=== PATIENT | female | born 1980 | race Two or more races ===

== ENCOUNTER 2024-11-28 07:56 | Outpatient (CLI) | payer BC ==
[2024-11-28 09:00] LABS: Hematocrit 39.8 % (34.9-44.5); Hemoglobin 13.0 g/dL (12.0-15.5); Mean Corpuscular Hemoglobin 28.2 pg (27.0-33.0); Mean Corpuscular Volume 86.3 fL (81.6-98.3); Platelet Count 314 10x3/uL (150-450); Red Blood Cell (RBC) Count 4.61 10x6/uL (3.90-5.03); White Blood Cell (WBC) Count 7.76 10x3/uL (3.5-10.5)
[2024-11-28 09:18] LABS: ALT (SGPT) 55 U/L (Less than 34); AST (SGOT) 32 U/L (11-34); Albumin 3.9 g/dL (3.1-4.5); Alkaline Phosphatase 67 U/L (40-110); Anion Gap 13 mmol/L (10-20); BUN (Urea Nitrogen) 11 mg/dL (7.0-18.7); Bilirubin, Total 0.4 mg/dL (0.3-1.2); Calc. Creatinine Clearance 0 mL/min (70-130); Calcium 8.7 mg/dL (7.8-10.44); Carbon Dioxide 24 mmol/L (22-29); Chloride 108 mmol/L (98-107); Globulin 2.4 g/dL (2.4-3.5); Glucose 102 mg/dL (70-105); Potassium 4.4 mmol/L (3.5-5.1); Sodium 141 mmol/L (136-145)
== END 2024-11-28 07:57 | disposition home or self-care (01) ==
LOC: CSHLAB 07:56
PROVIDERS: ATTEND Surgery
DX: Z01.812 Encounter for preprocedural laboratory examination (principal); K80.20 Calculus of gallbladder without cholecystitis without obstruction
CPT/HCPCS: 80053; 85027

== ENCOUNTER 2024-11-30 07:52 | Day surgery (SDC) | payer BC ==
[2024-11-28 08:36] VITALS: BMI 35.7
[2024-11-30] MEDS ORDERED: Famotidine/PF 20 mg/2ml Vial ONE (09:39)
[2024-11-30] MEDS ORDERED: Acetaminophen 500 MG TAB ONE (09:39)
[2024-11-30] MEDS ORDERED: Bupivacaine HCl 0.5%/Epinephrine 1:200,000/PF 30 ml Vial ONE (11:26)
[2024-11-30] MEDS ORDERED: PROPOFOL 20 ML ONE (11:27)
[2024-11-30] MEDS ORDERED: Lidocaine 1% PF 5 ML VIAL ONE (11:29)
[2024-11-30] MEDS ORDERED: SUCCINYLCHOLINE/SOD CL,ISO/PF 200 MG/10 ML SYRINGE FS ONE (11:30)
[2024-11-30] MEDS ORDERED: CEFAZOLIN 2 GM VIAL ONE (11:47)
[2024-11-30] MEDS ORDERED: Sevoflurane 250 ML INH ANEST BOTTLE ONE (12:21)
[2024-11-30] MEDS ORDERED: Ondansetron PF 4 MG/2 ML Vial ONE ×2 (12:29→15:00)
[2024-11-30] MEDS ORDERED: PHENYLEPHRINE-NS 100 MCG/ML 10 ML SYRINGE ONE ×2 (12:37→13:21)
[2024-11-30] MEDS ORDERED: SUGAMMADEX SODIUM 200 MG/2 ML VIAL ONE (13:28)
[2024-11-30] MEDS ORDERED: oxyCODONE 5 MG TAB ONE (15:01)
== END 2024-11-30 16:12 | disposition home or self-care (01) ==
LOC: CSHSDC 07:52
PROVIDERS: ATTEND Surgery
PROC: 0FT44ZZ Resection of Gallbladder, Percutaneous Endoscopic Approach (ICD-10-PCS; principal; 2024-11-30)
DX: K80.10 Calculus of gallbladder with chronic cholecystitis without obstruction (principal)
CPT/HCPCS: 47532; 88304; C1889; J1100; J2704; J3010; Q9967; S2900